=== PATIENT | female | born 1955 | race Hispanic/Latino ===

== ENCOUNTER 2017-02-18 06:33 | Day surgery (SDC) | payer OTHER ==
[2017-02-18 07:40] VITALS: BMI 25.6
[2017-02-18] MEDS ORDERED: Propofol 10 mg/ml Inj (20 ML) ONE ×2 (08:18→09:08)
[2017-02-18] MEDS ORDERED: Midazolam 2 MG/2 ML VIAL ONE (08:18)
[2017-02-18] MEDS ORDERED: Lactated Ringer's 500 ML IV ONE (08:27)
[2017-02-18 09:28] VITALS: TEMP 97.3
[2017-02-18 10:09] VITALS: RESP 15; O2SAT 100
[2017-02-18 10:22] VITALS: BP 124/75; PULSE 80
== END 2017-02-18 10:19 | disposition home or self-care (01) ==
LOC: C.ENDO 06:33
PROVIDERS: ATTEND Internal Medicine Gastroenterology
DX: Z12.11 Encounter for screening for malignant neoplasm of colon (principal); D12.2 Benign neoplasm of ascending colon; D12.0 Benign neoplasm of cecum
CPT/HCPCS: 45380; 45385; 88305; J2250; J2704; J7120

== ENCOUNTER 2017-03-19 07:23 | Day surgery (SDC) | payer OTHER ==
--- NOTE | 2017-03-19 09:11 | CP.SDSHP ---
Same Day Surgery H & P - History Proposed Procedure: Colonoscopy EMR Pre-Op Diagnosis: Colon polyp - Previous Medical/Surgical History Previous Surgical History: colonoscopy - Allergies Allergies: Allergies amoxicillin [From Augmentin] Allergy (Intermediate, Verified 03/19/17 07:51) VOMITING clavulanic acid [From Augmentin] Allergy (Intermediate, Verified 03/19/17 07:51) VOMITING Sulfa (Sulfonamide Antibiotics) Allergy (Intermediate, Verified 03/19/17 07:51) VOMITING - Physical Exam General Appearance: nl Vital Signs: Vital Signs 03/19/17 03/19/17 07:50 08:30 Temperature 97.8 F 97.8 F Pulse Rate 80 80 Respiratory 20 20 Rate Blood Pressure 148/99 H 148/99 H O2 Sat by Pulse 100 100 Oximetry Mental Status: Alert & Oriented x3 Neuro: WNL Heart: WNL Lungs: WNL GI: WNL - {Optional Preform as Required} Abdomen: WNL - Impression Impression: TV adenoma Pt. Evaluated Today:Candidate for Anesthesia & Procedure: Yes - Date & Time Date: 03/19/17 Time: 09:10 Short Stay Discharge - Short Stay Discharge Admitting Diagnosis/Reason for Visit: PERSONAL HISTORY OF COLONIC POLYPS Disposition: HOME/ ROUTINE
[2017-03-19] MEDS ORDERED: Methylene Blue 10 mg/ml (1ml) Inj IV ONE (09:31)
[2017-03-19] MEDS ORDERED: Lactated Ringer's 1,000 ML IV ONE ×3 (09:41→11:32)
[2017-03-19] MEDS ORDERED: Propofol 10 mg/ml Inj (20 ML) ONE ×4 (10:04→11:21)
[2017-03-19] MEDS ORDERED: Lidocaine Hydrochloride 5 ML INJ ONE (10:04)
[2017-03-19] MEDS ORDERED: Midazolam 2 MG/2 ML VIAL ONE (10:11)
[2017-03-19 13:16] VITALS: TEMP 96.8
[2017-03-19 13:18] VITALS: O2SAT 100
[2017-03-19 13:21] VITALS: BP 123/79; PULSE 62; RESP 13
== END 2017-03-19 13:00 | disposition home or self-care (01) ==
LOC: C.ENDO 07:23
PROVIDERS: ATTEND Internal Medicine
DX: K63.5 Polyp of colon (principal); Z86.010 Personal history of colon polyps; K64.8 Other hemorrhoids; K57.30 Diverticulosis of large intestine without perforation or abscess without bleeding
CPT/HCPCS: 45380; 45381; 45385; 88305; J2250; J2704; J7120

== ENCOUNTER 2017-08-09 05:43 | Day surgery (SDC) | payer OTHER ==
[2017-08-09 06:22] VITALS: BP 161/92; PULSE 81; RESP 20; TEMP 97.6; O2SAT 97
[2017-08-09] MEDS ORDERED: Bupivacaine HCl 0.25% PF (30 ml) Inj ONE (07:20)
[2017-08-09] MEDS ORDERED: Lidocaine/Epinephrine 1% 1:100000 10 ML IJ ONE (07:20)
[2017-08-09] MEDS ORDERED: metroNIDAZOLE IV 500 mg/100 ml 500 MG/100 ML BAG ONE (07:21)
[2017-08-09] MEDS ORDERED: Propofol 10 mg/ml Inj (20 ML) ONE (07:36)
[2017-08-09] MEDS ORDERED: Rocuronium 10 mg/ml (5 ml) ONE (07:36)
[2017-08-09] MEDS ORDERED: Midazolam 2 MG/2 ML VIAL ONE (07:36)
== END 2017-08-09 08:55 | disposition home or self-care (01) ==
LOC: C.SDS 05:43
PROVIDERS: ATTEND Surgery Surgical Critical Care
DX: K63.9 Disease of intestine, unspecified (principal); Z53.09 Procedure and treatment not carried out because of other contraindication
CPT/HCPCS: 36415; 44204; 86850; 86900; J2001; J2250; J2704; J3010

== ENCOUNTER 2017-08-11 08:28 | Inpatient (IN) | payer OTHER ==
[2017-08-11] MEDS ORDERED: Bupivacaine 0.25% Inj(30mL) IJ ONE (11:16)
[2017-08-11] MEDS ORDERED: Lidocaine/Epinephrine 1% 1:100000 10 ML IJ ONE (11:27)
[2017-08-11] MEDS ORDERED: metroNIDAZOLE IV 500 mg/100 ml 500 MG/100 ML BAG ONE (11:28)
[2017-08-11] MEDS ORDERED: Propofol 10 mg/ml Inj (20 ML) ONE (11:45)
[2017-08-11] MEDS ORDERED: Midazolam 2 MG/2 ML VIAL ONE ×2 (11:46→13:19)
[2017-08-11] MEDS ORDERED: Ciprofloxacin 400mg/200ml D5W 400 MG/200 ML BAG IVPB ONE (11:56)
[2017-08-11] MEDS ORDERED: Bupivacaine 0.5% Inj(30mL) IJ ONE (12:46)
[2017-08-11] MEDS ORDERED: BUPIVACAINE 0.125%/0.9% NACL 600 ML IJ ONE (15:30)
[2017-08-11] MEDS ORDERED: Morphine 4 MG/ML VIAL ONE (15:40)
[2017-08-11] MEDS ORDERED: HYDROmorphone 0.5 mg/0.5 ml ISec IVP PRN (15:54)
[2017-08-11] MEDS ORDERED: Lactated Ringer's 1,000 ML IV ONE (16:15)
--- NOTE | 2017-08-11 16:42 | PCM.SURG1 ---
Surgeon's Initial Post Op Note - Surgeon's Notes Surgeon: Dr. Molina Surfboard Maker: Gin Flynn PGY2 Staltairshahnaz Type of Anesthesia: General Endo Pre-Operative Diagnosis: Ascending colon Mass Operative Findings: Ascending colon mass, tattooed, RL abd adhesions Post-Operative Diagnosis: SAme Operation Performed: Robotic hand assisted laparoscopic R hemocolectomy. On Q placement Specimen/Specimens Removed: R colon Estimated Blood Loss: EBL {In ML}: 100 Blood Products Given: N/A Post-Op Condition: Good Date of Surgery/Procedure: 08/11/17 Time of Surgery/Procedure: 16:42
[2017-08-11] MEDS: Dextrose 5%/0.45% NS 1,000 ML IV SCH ×2 (19:33→19:37)
[2017-08-11] MEDS: metroNIDAZOLE IV 500 mg/100 ml 500 MG/100 ML BAG IVPB SCH (22:13)
[2017-08-12] MEDS: Ciprofloxacin 400mg/200ml D5W 400 MG/200 ML BAG IVPB SCH ×2 (00:06→12:29)
[2017-08-12] MEDS: HYDROmorphone 1 mg/ml ISec IVP PRN ×3 (01:11→19:55)
[2017-08-12] MEDS: Dextrose 5%/0.45% NS 1,000 ML IV SCH ×3 (02:30→23:50)
[2017-08-12] MEDS: metroNIDAZOLE IV 500 mg/100 ml 500 MG/100 ML BAG IVPB SCH ×3 (05:58→21:39)
[2017-08-12 07:45] LABS: BASO % 0.2 % (0.0-2.0); EOS % 0.5 % (0.0-4.0); LYMPH # 1.1 K/uL (1.0-4.3); LYMPH % 17.9 % (20.0-40.0); MEAN CELL VOLUME 94.7 fL (81.0-99.0); MEAN CORPUSCULAR HEMOGLOBIN 32.2 pg (27.0-31.0); MEAN PLATELET VOLUME 7.4 fL (7.2-11.7); MONO # 0.8 K/uL (0.0-0.8); MONO % 14.1 % (0.0-10.0); NEUT % 67.3 % (50.0-75.0); NRBC % 0.1 % (0.0-2.0); RBC 3.41 Mil/uL (3.80-5.20); RED CELL DISTRIBUTION WIDTH 14.4 % (11.5-14.5)
[2017-08-12 08:11] LABS: BLOOD UREA NITROGEN 9 mg/dL (7-17); CALCIUM 8.3 mg/dl (8.6-10.4); GFR AFRICAN-AMERICAN > 60; GFR NON-AFRICAN AMERICAN > 60
[2017-08-12] MEDS: Enoxaparin 40 mg Syringe SC SCH (09:37)
[2017-08-13] MEDS: HYDROmorphone 1 mg/ml ISec IVP PRN (01:02)
--- NOTE | 2017-08-13 03:43 | OP ---
PROCEDURE DATE: 08/11/2017 PREOPERATIVE DIAGNOSIS: Ascending colon mass, tubulovillous adenoma. POSTOPERATIVE DIAGNOSES: 1. Ascending colon mass, tubulovillous adenoma. 2. Extensive pelvic adhesion of ilium with the short mesentery. 3. Umbilical hernia containing preperitoneal fat. PROCEDURE DONE: 1. Robotic right hemicolectomy. 2. Robotic extensive lysis of adhesion in the pelvis. 3. Robotic small bowel resection. 4. Open umbilical hernia repaired with the mesh. 5. Bilateral On-Q pain catheter pump placement. SURGEON: The procedure was done by Kodak smith MD. PRECAST WORKER: TEA Borja SECOND PRECAST WORKER: Pina, PGY-2 resident. TYPE OF ANESTHESIA: General endotracheal tube anesthesia. ESTIMATED BLOOD LOSS: Around 50 mL. PATHOLOGY: 1. Ileum, Cecum, Ascending colon and Transverse colon 2. Additional Small bowel( Ileum) 3. Umbilical hernia sac and content DRAIN: The 19-Faroese Trent drain was placed. COMPLICATIONS: None. INTRAOPERATIVE FINDINGS: The patient had large ascending colon mass, and the patient also had extensive ileal adhesion in the pelvis that was extremely firm and the patient had a very short mesentery of the terminal ileum area. Due to short mesentry, it was unable to mobilize small bowel for anastamosis. Additional Small bowel resection was done to mobilize small bowel from pelvis. The patient also had a 2 x 2 cm umbilical hernia containing preperitoneal fat. DESCRIPTION OF PROCEDURE: On intraoperative steps, this is a 62-year-old female who was diagnosed with ascending colon mass and the patient was consented for the robotic right hemicolectomy, possible open, brought to the OR, placed supine on operating table. After induction of the anesthesia, the abdomen was prepped and draped in the usual sterile fashion. The left upper quadrant incision was made. Using the Visiport technique, the peritoneal cavity was entered, and pneumo was created. An 8 mm robotic port was placed in the left side of the abdomen and 12-mm port was placed in suprapubic region. After that robot was brought in. Camera arm as well as arm 1 and arm 2 were docked. The patient was found to have a large ascending colon mass, and the patient also had a firm adhesion of the terminal ileum in the pelvic as well as in the right lower quadrant. First, the lesser sac was entered, and dissection of the colon was done from the omentum as well as from the hepatocolic ligament and the right colon was completely mobilized from lateral to medial. Now the patient found to have thickened appendicular attachment into the pelvic as well as ileal attachment to the pelvis and the lateral pelvic wall and first extensive lysis of adhesion was done to mobilize the small bowel. Small bowel was resected close to the ileocecal valve. The mesocolon was resected with vessel sealer. The transverse colon was resected at midtransverse colon level and the mesocolon was also resected with the vessel sealer. During the dissection, the duodenum was identified and after complete excision of ileum, right colon and the transverse colon, the transverse colon was mobilized to get it ready for anastomosis, and now the small bowel was also mobilized. It appeared to be extremely short terminal ileal mesentery, and the mesentery was firmly adhesed to the pelvis and retroperitoneum, and dissection was done. Then, additional small part of the ileum was resected to bring the mobilized part of the ileum to the wound and the small bowel was sent off the table for the pathology. The side to side anastomosis of the ileum to the transverse colon was done. Intraoperative Firefly was used before anastomosis for normal blood supply as well as after anastomosis, another Firefly was used to check for the blood supply. There was a good blood supply. Anastomosis was viable without any tension. After proper anastomosis, the suction irrigation of the right side of the abdomen was done. The 19-Faroese Trent drain was placed and the drain was taken out from one of the port site and the drain was secured. All the port site was closed in a two-layer, subcu with 2-0 Vicryl, skin with 4-0 Monocryl. A 12 mm port site was closed with fascia with 0 Vicryl, skin with 4-0 Monocryl. The specimen delivering site was also closed with #1 PDS in a continuous fashion. During the closure, the patient was found to have umbilical hernia and both umbilical hernial sac and content were resected and was sent off the table for pathology. The defect appeared to be approximately 2 x 2 cm, and the defect was closed with interrupted 0 Prolene multiple suture, and after proper closure of the fascia as well as umbilical hernia with PDS and with Prolene, the wound was irrigated. The subcu was closed with 0 Vicryl and skin with 4-0 Monocryl and dry sterile dressing was applied. The bilateral On-Q pain catheter pump was also placed before closing the wound and the catheter was connected to the On-Q bulb and dry sterile dressing was applied. The patient tolerated the procedure well. Count of instruments and gauze was correct. There was no apparent complication. The patient was extubated in the OR, sent to the postanesthesia care unit in stable condition. Kodak Molina MD MTDAdeline
[2017-08-13] MEDS: metroNIDAZOLE IV 500 mg/100 ml 500 MG/100 ML BAG IVPB SCH ×3 (06:04→21:03)
[2017-08-13 07:56] LABS: HEMOGLOBIN 11.6 g/dL (11.0-16.0); MEAN CELL VOLUME 94.6 fL (81.0-99.0); MEAN CORPUSCULAR HEMOGLOBIN 32.8 pg (27.0-31.0); MEAN CORPUSCULAR HGB CONC 34.6 g/dL (33.0-37.0); MEAN PLATELET VOLUME 7.5 fL (7.2-11.7); RBC 3.53 Mil/uL (3.80-5.20); RED CELL DISTRIBUTION WIDTH 13.9 % (11.5-14.5); WHITE BLOOD COUNT 7.3 K/uL (4.8-10.8)
[2017-08-13 08:06] LABS: BLOOD UREA NITROGEN 3 mg/dL (7-17); CALCIUM 8.4 mg/dl (8.6-10.4); GFR AFRICAN-AMERICAN > 60; GFR NON-AFRICAN AMERICAN > 60
[2017-08-13] MEDS: Dextrose 5%/0.45% NS 1,000 ML IV SCH ×3 (08:52→23:47)
--- NOTE | 2017-08-13 09:36 | CP.PCM.PN ---
<Fidel Munguia - Last Filed: 08/13/17 11:35> Subjective - Date & Time of Evaluation Date of Evaluation: 08/13/17 Time of Evaluation: 09:33 - Subjective Subjective: General Surgery Progress note for Dr. Molina This 62F was seen and evaluated this AM at bedside no acute events overnight. She reports that her pain is well controlled. She is tolerating clears. Denies BM or flatus. She denies chest pain or SOB. She is requesting oakley be removed so that she can better ambulate. Objective - Vital Signs/Intake and Output Vital Signs (last 24 hours): Temp Pulse Resp BP Pulse Ox 98.9 F 76 20 157/85 H 97 08/13/17 08:04 08/13/17 08:04 08/13/17 08:04 08/13/17 08:04 08/13/17 08:04 Intake and Output: 08/13/17 08/13/17 06:59 18:59 Intake Total 1900 Output Total 1630 1000 Balance 270 -1000 - Medications Medications: Current Medications Acetaminophen (Tylenol 325mg Tab) 975 mg PO Q6 PRN PRN Reason: Fever >100.4 F Enoxaparin Sodium (Lovenox) 40 mg SC DAILY BRYANT Last Admin: 08/12/17 09:37 Dose: 40 mg Hydromorphone HCl (Dilaudid) 1 mg IVP Q4H PRN PRN Reason: Pain, severe (8-10) Last Admin: 08/13/17 01:02 Dose: 1 mg BUPIVACAINE 0.125%/0.9% NACL (Bupivacaine-Ns 0.125% On-Q Plumber Maintenance) 600 mls @ 4 mls/ hr IJ ONCE ONE Stop: 08/17/17 21:29 Dextrose/Sodium Chloride (Dextrose 5%/0.45% Ns 1000 Ml) 1,000 mls @ 100 mls/hr IV .Q10H BRYANT Last Admin: 08/13/17 08:52 Dose: Not Given Metronidazole (Flagyl) 500 mg in 100 mls @ 100 mls/hr IVPB Q8 BRYANT PRN Reason: Protocol Last Admin: 08/13/17 06:04 Dose: 100 mls/hr Ciprofloxacin (Cipro 400mg/200ml Dsw) 400 mg in 200 mls @ 133 mls/hr IVPB Q12H BRYANT PRN Reason: Protocol Last Admin: 08/13/17 00:00 Dose: 133 mls/hr Pneumococcal Polyvalent Vaccine (Pneumovax 23 Vaccine) 0.5 ml IM .ONCE ONE Stop: 08/13/17 10:01 - Labs Labs: 08/13/17 07:47 08/13/17 07:47 - Constitutional Appears: Non-toxic, No Acute Distress - Head Exam Head Exam: ATRAUMATIC, NORMOCEPHALIC - Eye Exam Eye Exam: EOMI, Normal appearance - ENT Exam ENT Exam: Mucous Membranes Moist - Respiratory Exam Respiratory Exam: NORMAL BREATHING PATTERN - Cardiovascular Exam Cardiovascular Exam: +S1, +S2 - GI/Abdominal Exam GI & Abdominal Exam: Soft. absent: Distended, Firm, Guarding, Rigid, Tenderness Additional comments: Dressing clean dry and intact, ONQ in place and leaking - Neurological Exam Neurological Exam: Alert, Awake - Psychiatric Exam Psychiatric exam: Normal Affect, Normal Mood - Skin Skin Exam: Dry, Intact Assessment and Plan - Assessment and Plan (Free Text) Assessment: 62F POD#2 s/p Robotic colectomy and doing well Plan: D/C oakley Ambulate Will advance diet with bowel function Onq for pain Further recs per Dr. Tracy Munguia PGY2 <Kodak Molina B - Last Filed: 08/15/17 20:36> Objective - Vital Signs/Intake and Output Vital Signs (last 24 hours): Temp Pulse Resp BP Pulse Ox 97.5 F L 69 18 117/75 99 08/15/17 00:36 08/15/17 00:36 08/15/17 00:36 08/15/17 00:36 08/15/17 00:36 - Labs Labs: 08/14/17 16:02 08/13/17 07:47 Attending/Attestation - Attestation I have personally seen and examined this patient.: Yes I have fully participated in the care of the patient.: Yes I have reviewed all pertinent clinical information, including history, physical exam and plan: Yes Notes (Text): Pt was seen and examined at bedside Agree with above note and assessment Pt is improving clinically Clear liquid DC oakley DVT prophylaxis C/W IV antibiotics c.w current mx Plan d.w pt in detail Risk and benefit explained in detail
[2017-08-13] MEDS ORDERED: Pneumococcal 23-Valent Vaccine IM ONE (10:00)
[2017-08-13] MEDS: Enoxaparin 40 mg Syringe SC SCH (10:40)
[2017-08-13] MEDS: Ciprofloxacin 400mg/200ml D5W 400 MG/200 ML BAG IVPB SCH ×3 (12:00→23:47)
[2017-08-14] MEDS: Dextrose 5%/0.45% NS 1,000 ML IV SCH ×3 (05:45→14:50)
[2017-08-14] MEDS: metroNIDAZOLE IV 500 mg/100 ml 500 MG/100 ML BAG IVPB SCH ×3 (05:49→21:40)
[2017-08-14] MEDS: Enoxaparin 40 mg Syringe SC SCH (09:36)
[2017-08-14] MEDS: Ciprofloxacin 400mg/200ml D5W 400 MG/200 ML BAG IVPB SCH (11:17)
[2017-08-14 16:06] LABS: HEMOGLOBIN 12.7 g/dL (11.0-16.0); MEAN CELL VOLUME 93.6 fL (81.0-99.0); MEAN CORPUSCULAR HEMOGLOBIN 32.1 pg (27.0-31.0); MEAN CORPUSCULAR HGB CONC 34.3 g/dL (33.0-37.0); MEAN PLATELET VOLUME 7.5 fL (7.2-11.7); RBC 3.98 Mil/uL (3.80-5.20); WHITE BLOOD COUNT 8.8 K/uL (4.8-10.8)
[2017-08-15] MEDS: Ciprofloxacin 400mg/200ml D5W 400 MG/200 ML BAG IVPB SCH (00:01)
[2017-08-15 00:36] VITALS: BP 117/75; PULSE 69; RESP 18; TEMP 97.5; O2SAT 99
--- NOTE | 2017-08-15 08:13 | CP.PCM.DIS ---
Provider - Provider Date of Admission: 08/11/17 16:13 Attending physician: Kodak Molina MD Time Spent in preparation of Discharge (in minutes): 45 Hospital Course - Lab Results Lab Results: Most Recent Lab Values WBC 8.8 K/uL (4.8-10.8) 08/14/17 16:02 RBC 3.98 Mil/uL (3.80-5.20) 08/14/17 16:02 Hgb 12.7 g/dL (11.0-16.0) 08/14/17 16:02 Hct 37.2 % (34.0-47.0) 08/14/17 16:02 MCV 93.6 fL (81.0-99.0) 08/14/17 16:02 MCH 32.1 pg (27.0-31.0) H 08/14/17 16:02 MCHC 34.3 g/dL (33.0-37.0) 08/14/17 16:02 RDW 14.0 % (11.5-14.5) 08/14/17 16:02 Plt Count 238 K/uL (130-400) 08/14/17 16:02 MPV 7.5 fL (7.2-11.7) 08/14/17 16:02 Neut % (Auto) 67.3 % (50.0-75.0) 08/12/17 07:32 Lymph % (Auto) 17.9 % (20.0-40.0) L 08/12/17 07:32 [place] % (Auto) 14.1 % (0.0-10.0) H 08/12/17 07:32 Eos % (Auto) 0.5 % (0.0-4.0) 08/12/17 07:32 Baso % (Auto) 0.2 % (0.0-2.0) 08/12/17 07:32 Neut # (Auto) 4.0 K/uL (1.8-7.0) 08/12/17 07:32 Lymph # (Auto) 1.1 K/uL (1.0-4.3) 08/12/17 07:32 [place] # (Auto) 0.8 K/uL (0.0-0.8) 08/12/17 07:32 Eos # (Auto) 0.0 K/uL (0.0-0.7) 08/12/17 07:32 Baso # (Auto) 0.0 K/uL (0.0-0.2) 08/12/17 07:32 Sodium 137 mmol/L (132-148) 08/13/17 07:47 Potassium 3.7 mmol/L (3.6-5.2) 08/13/17 07:47 Chloride 102 mmol/L (98-107) 08/13/17 07:47 Carbon Dioxide 25 mmol/L (22-30) 08/13/17 07:47 Anion Gap 13 (10-20) 08/13/17 07:47 BUN 3 mg/dL (7-17) L 08/13/17 07:47 Creatinine 0.6 mg/dL (0.7-1.2) L 08/13/17 07:47 Est GFR ( Amer) > 60 08/13/17 07:47 Est GFR (Non-Af Amer) > 60 08/13/17 07:47 Random Glucose 119 mg/dL (65-105) H 08/13/17 07:47 Calcium 8.4 mg/dl (8.6-10.4) L 08/13/17 07:47 Blood Type A NEGATIVE 08/11/17 10:42 Antibody Screen Negative 08/11/17 10:42 - Hospital Course Hospital Course: 62 F came to [facility] for ascending colon mass . SHe underwent robotic hand assisted R hemicolectomy and tolerated it well. On Q was placed. Pain controlled. Drain put out SS fluids. Had BM and tolerated diet. Pt is ambulating. OnQ was removed upon discharge. Pt was educated on Wound care and instructed to f/u at Dr. Molina's office. Discharge Exam - Head Exam Head Exam: ATRAUMATIC, NORMOCEPHALIC Discharge Plan - Follow Up Plan Condition: GOOD Disposition: HOME/ ROUTINE Instructions: Colectomy, Laparoscopic Surgery Additional Instructions: follow up at Dr. molina's office in 1-2 weeks Ok to take shower. Take dressing off Keep white strips on Soft diet No heavy lifting for 1 month Referrals: Kodak Molina MD [Staff Provider] -
[2017-08-15] MEDS: Enoxaparin 40 mg Syringe SC SCH (09:48)
--- NOTE | 2017-08-24 11:29 | PQF ---
PROVIDER RESPONSE TEXT: Agree with path report. Pt has adenocarcinoma of ascending colon. REVIEWER QUERY TEXT: Clarification of Clinical Diagnostic Findings Please clarify documentation or clinical relevance for the clinical / diagnostic findings or whether those are insignificant or unable to be further specified. The patient's Clinical Indicators include: Path report - Colon/ ascending --- Invasive Adenocarcinoma, moderately differentiated. Query created by: Vita Cameron on 08/23/2017 2:34 PM Electronically signed by: Kodak Molina MD 08/24/2017 11:27 AM
== END 2017-08-15 13:05 | disposition home or self-care (01) | DRG 331 ==
LOC: C.SDS 08:28 → C.9S 16:13 → C.3T 17:08
PROVIDERS: ADMIT Surgery Surgical Critical Care; ATTEND Surgery Surgical Critical Care
PROC: 0DNW4ZZ Release Peritoneum, Percutaneous Endoscopic Approach (ICD-10-PCS; 2017-08-11)
PROC: 0WUF0JZ Supplement Abdominal Wall with Synthetic Substitute, Open Approach (ICD-10-PCS; 2017-08-11)
PROC: 8E0W4CZ Robotic Assisted Procedure of Trunk Region, Percutaneous Endoscopic Approach (ICD-10-PCS; 2017-08-11)
PROC: 0DTF4ZZ Resection of Right Large Intestine, Percutaneous Endoscopic Approach (ICD-10-PCS; principal; 2017-08-11 10:15)
DX: C18.2 Malignant neoplasm of ascending colon (principal); N73.6 Female pelvic peritoneal adhesions (postinfective); K42.9 Umbilical hernia without obstruction or gangrene; L81.8 Other specified disorders of pigmentation